=== PATIENT | male | born 1965 | race African-American/Black ===

== ENCOUNTER 2018-10-28 20:19 | Emergency (ER) | payer OTHER ==
--- NOTE | 2018-10-28 21:00 | ED ---
Syncope/Near Syncope - HPI Summary HPI Summary: This pt is a 53 y/o male presenting to [facility] via EMS for syncope today at around 20:00. Pt reports he started working at [employer] at 18:00 today and felt fine. 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 He also states he became lightheaded and knew he had to go out and sit. A witness said patient hit the wall but patient does not remembering hitting anything. He currently c/o lower back pain. Denies abd pain, nausea, vomiting. No PMHx. He does not take any medications. Denies hx of DM or cardiac disease. Pt does smoke cigarettes. 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 [employer] Aggravating Factor(s): Nothing Alleviating Factor(s): Nothing Associated Signs And Symptoms: Lightheadedness, Pain - lower back pain, Other - NEGATIVE: abd pain - Allergies/Home Medications Allergies/Adverse Reactions: Allergies Allergy/AdvReac Type Severity Reaction Status Date / Time No Known Allergies Allergy Verified 03/23/15 19:41 PMH/Surg Hx/FS Hx/Imm Hx Endocrine/Hematology History: Denies: Hx Diabetes Cardiovascular History: Denies: Hx Hypertension Infectious Disease History: No Infectious Disease History: Denies: Traveled Outside the [place] in Last 30 Days - Family History Known Family History: Positive: Diabetes - mother - Social History Alcohol Use: Weekly Substance Use Type: Reports: Marijuana Smoking Status (MU): Current Every Day Smoker Review of Systems Constitutional: Other - POSITIVE: feeling hot Negative: Fever Negative: Abdominal Pain, Vomiting, Nausea Musculoskeletal: Other - POSITIVE: lower back pain Neurological: Other - POSITIVE: lightheadedness Positive: Syncope All Other Systems Reviewed And Are Negative: Yes Physical Exam - Summary Physical Exam Summary: Appearance: Well-appearing, Well-nourished, lying in bed comfortably. Noted to be hypotensive. Skin: Warm, dry, no obvious rash Eyes: sclera anicteric, no conjunctival pallor ENT: mucous membranes moist, pharynx appears normal Neck: Supple, nontender Respiratory: Clear to auscultation, no signs of respiratory distress Cardiovascular: Normal S1, S2. No murmurs. Normal distal pulses in tibial and radial bilaterally. Abdomen: Soft, nontender, normal active bowel sounds present Musculoskeletal: Normal, Strength/ROM Intact Neurological: A&Ox3, awake and alert, mentation is normal, speech is fluent and appropriate Psychiatric: affect is normal, does not appear anxious or depressed Triage Information Reviewed: Yes Vital Signs On Initial Exam: Initial Vitals Temp Pulse Resp BP Pulse Ox 98.0 F 69 16 95/63 98 10/28/18 20:20 10/28/18 20:20 10/28/18 20:20 10/28/18 20:20 10/28/18 20:20 Vital Signs Reviewed: Yes Diagnostics - Vital Signs Vital Signs Temp Pulse Resp BP Pulse Ox 10/28/18 20:20 98.0 F 69 16 95/63 98 - Laboratory Result Diagrams: 10/28/18 21:15 10/28/18 21:15 Lab Statement: Any lab studies that have been ordered have been reviewed, and results considered in the medical decision making process. - Radiology Chest XR Radiology Interpretation Completed By: ED Physician Summary of Radiographic Findings: No acute process - EKG 20:34 Cardiac Rate: Bradycardia EKG Rhythm: Sinus Bradycardia Summary of EKG Findings: Multiple ventricular premature complexes. Abnormal T, consider ischemia, anterior leads. Course/Dx Assessment/Plan: Pt is a 53 y/o male presenting to [facility] via EMS for syncope today at around 20:00. 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 He was witnessed to hit the wall and fall. Pt c/o lower back pain. Blood work was obtained and remarkable for creatinine of 1.58. In the ED course the pt was given IV fluids. Pt was ambulated in the ED with a good steady gait. He will be discharged home with follow up from his PCP. He is advised to be seen by his PCP in 1 week to have his kidney function rechecked. - Diagnoses Provider Diagnoses: Syncope, Dehydration Discharge - Sign-Out/Discharge Documenting (check all that apply): Patient Departure - Discharge home Patient Received Moderate/Deep Sedation with Procedure: No - Discharge Plan Condition: Good Disposition: HOME Patient Education Materials: Dehydration (ED), Syncope (ED) Referrals: Care [facility] [Outside] No Primary Care Phys,NOPCP [Primary Care Provider] - Additional Instructions: I would like you to be seen within a week by a doctor to have your kidney function rechecked. If you start feeling poorly again, just come back here. - Billing Disposition and Condition Condition: GOOD Disposition: Home - Attestation Statements Document Initiated by Lucas: Yes Documenting Scribe: Ana York Provider For Whom Lucas is Documenting (Include Credential): Hussein Haider MD Scribe Attestation: I, Ana York, scribed for Hussein Haider MD on 10/29/18 at 1941. Scribe Documentation Reviewed: Yes Provider Attestation: The documentation as recorded by the Ana mata accurately reflects the service I personally performed and the decisions made by me, Hussein Haider MD Status of Scribe Document: Viewed
[2018-10-28] MEDS ORDERED: NS 0.9% 1000 ML** 3,000 ML IV ONE (21:01)
[2018-10-28 21:21] LABS: ABS Eosinophils 0.3 10^3/ul (0-0.6); ABS Lymphocytes 1.4 10^3/ul (1.0-4.8); ABS Monocytes 0.4 10^3/ul (0-0.8); ABS Neutrophils 2.4 10^3/ul (1.5-7.7); Eosinophil % 7.5 %; Hematocrit 36 % (42-52); Hemoglobin 12.6 g/dL (14.0-18.0); Lymphocyte % 31.4 %; Mean Corpuscular HGB Conc 35 g/dL (31-36); Mean Corpuscular Hemoglobin 34 pg (27-31); Mean Corpuscular Volume 99 fL (80-94); Mean Platelet Volume 6.2 fL (7.4-10.4); Nucleated Red Blood Cells % 0.1; Platelet Count 239 10^3/uL (150-450); Red Cell Distribution Width 14 % (10-15); White Blood Count 4.6 10^3/uL (3.5-10.8)
[2018-10-28 21:40] LABS: Albumin 3.7 g/dL (3.2-5.2); Albumin/Globulin Ratio 1.5 (1-3); BUN/Creatinine Ratio 13.9 (8-20); Calcium 8.4 mg/dL (8.6-10.3); EGFR African American 55.6 (>60); EGFR Non-African American 45.9 (>60); Globulin 2.4 g/dL (2-4); Potassium 3.7 mmol/L (3.5-5.0); Total Bilirubin 0.2 mg/dL (0.2-1.0); Total Protein 6.1 g/dL (6.4-8.9)
[2018-10-28 22:06] LABS: TSH (Thyroid Stimulating Horm) 0.79 mcIU/mL (0.34-5.60)
[2018-10-28 22:37] VITALS: BP 99/56
[2018-10-28 23:22] LABS: Urine Appearance Cloudy; Urine Bilirubin Negative (Negative); Urine Blood Negative (Negative); Urine Color Yellow; Urine Glucose 1+(50 mg/dL) (Negative); Urine Ketones Negative (Negative); Urine Nitrite Negative (Negative); Urine Protein Negative (Negative); Urine Specific Gravity 1.005 (1.010-1.030); Urine Urobilinogen Negative (Negative)
== END 2018-10-28 22:36 | disposition home or self-care (01) ==
LOC: ED 20:19
DX: R55 Syncope and collapse (principal); E86.0 Dehydration; F17.210 Nicotine dependence, cigarettes, uncomplicated
CPT/HCPCS: 36415; 71045; 80053; 81003; 83605; 84443; 84484; 85025; 93005; 96360; 99283

== ENCOUNTER 2019-01-17 10:34 | Emergency (ER) | payer OTHER ==
[2019-01-17] MEDS ORDERED: Fluorescein Sodium TOPICAL* 1 MG TEST STRIP OPHTHALMIC ONE (10:49)
[2019-01-17] MEDS ORDERED: Tetracaine 0.5% OPTH.SOL 4 ML* 1 DROP BTL LEFT EYE ONE (10:57)
[2019-01-17] MEDS ORDERED: Tetracaine 0.5% OPTH.SOL 4 ML* 1 DROP BTL LEFT EYE SCH (11:00)
--- NOTE | 2019-01-17 11:24 | ED ---
Throat Pain/Nasal Congestion - HPI Summary HPI Summary: Pt presents to the ED with L traumatic eye injury which occurred 2 days ago. States a large tennis sized ball from a wood block from chopping flew up and hit his open eye and orbit. States he felt immediate pain to the area, no bleeding or hemorrhage. He has been c/o decreased vision to the L side and is endorsing pain around the eye and behind the eye - sxs are worse with ocular movements. Denies wearing contacts, but has glasses. Currently not wearing glasses. Endorses tearing and green "purulent" drainage from the eye. Denies any other pain or symptoms. - History of Current Complaint Chief Complaint: EDEyeProblem Time Seen by Provider: 01/17/19 10:47 Hx Obtained From: Patient Onset/Duration: Sudden Onset Severity: Severe Associated Signs And Symptoms: Positive: FB Sensation - Epiglottits Risk Factors Epiglottis Risk Factors: Negative - Allergies/Home Medications Allergies/Adverse Reactions: Allergies Allergy/AdvReac Type Severity Reaction Status Date / Time No Known Allergies Allergy Verified 01/17/19 10:41 Home Medications: Home Medications NK [No Home Medications Reported] 01/17/19 [History Confirmed 01/17/19] PMH/Surg Hx/FS Hx/Imm Hx Previously Healthy: Yes Endocrine/Hematology History: Denies: Hx Diabetes Cardiovascular History: Denies: Hx Hypertension - Immunization History Hx Pertussis Vaccination: No Immunizations Up to Date: Yes Infectious Disease History: No Infectious Disease History: Denies: Traveled Outside the [place] in Last 30 Days - Family History Known Family History: Positive: Diabetes - mother - Social History Occupation: Employed Full-time Lives: With Family Alcohol Use: Weekly Hx Substance Use: Yes Substance Use Type: Reports: Marijuana Hx Tobacco Use: Yes Smoking Status (MU): Current Every Day Smoker Review of Systems Negative: Fever, Chills, Skin Diaphoresis Positive: Photophobia - is, Blurred Vision, Drainage, Erythema. Negative: Diplopia Negative: Palpitations, Chest Pain Negative: Shortness Of Breath, Cough Genitourinary: Negative Positive: no symptoms reported, see HPI Negative: Arthralgia, Myalgia Skin: Negative Neurological: Negative All Other Systems Reviewed And Are Negative: Yes Physical Exam Triage Information Reviewed: Yes Vital Signs On Initial Exam: Initial Vitals Temp Pulse Resp BP Pulse Ox 99.3 F 102 16 106/75 98 01/17/19 10:36 01/17/19 10:36 01/17/19 10:36 01/17/19 10:36 01/17/19 10:36 Vital Signs Reviewed: Yes Appearance: Positive: Ill-Appearing, Pain Distress Skin: Positive: Warm, Skin Color Reflects Adequate Perfusion Head/Face: Positive: Normal Head/Face Inspection Eyes: Positive: EOMI, ERYN, Conjunctiva Inflammed, Discharge - watery Neck: Positive: Supple, No Lymphadenopathy Respiratory/Lung Sounds: Positive: Clear to Auscultation, Breath Sounds Present Cardiovascular: Positive: RRR, Pulses are Symmetrical in both Upper and Lower Extremities Musculoskeletal: Positive: Normal, Strength/ROM Intact Neurological: Positive: Speech Normal Psychiatric: Positive: Normal, Affect/Mood Appropriate AVPU Assessment: Alert Procedures - Sedation Patient Received Moderate/Deep Sedation with Procedure: No Diagnostics - Vital Signs Vital Signs Temp Pulse Resp BP Pulse Ox 01/17/19 10:36 99.3 F 102 16 106/75 98 - Laboratory Lab Statement: Any lab studies that have been ordered have been reviewed, and results considered in the medical decision making process. EENT Course/Dx - Course Course Of Treatment: During his course of treatment, the patient's evaluated for pain behind the eye as well as periocular. Sxs have been present since Thursday after hit in the orbit and open eye with a tennis sized ball of wood. He is endorsing tearing from the eye, purulent drainage, severe pain and redness , unable to open the eye. Blepharospasms make ocular visualization difficult and boucher lamp examination limited as pt is unable to keep the eye open for exam. Ful -david to the eye and no uptake visualized. Tearing from the eye with no green/yellow drainage. As pt is having pain behind the eye, CT orbit obtained. Called Dr. Hoang office who is able to see the patient today at 2: 30pm. Given polymyxin drops - 1st dose given in ED. - Differential Diagnoses Differential Diagnoses: Other - Anterior segment injury, conjunctival foreign body, corneal abrasion, entrapment - Diagnoses Provider Diagnoses: Pain, eye, left, Blunt trauma eye - Provider Notifications Discussed Care Of Patient With: milton Ordonez ED - Sign-Out/Discharge Documenting (check all that apply): Patient Departure - Discharge Plan Condition: Fair Disposition: HOME Patient Education Materials: Corneal Abrasion (ED) Referrals: No Primary Care Phys,NOPCP [Primary Care Provider] - Nico Hoang MD [Medical Doctor] - Additional Instructions: You may have a corneal abrasion You will need to have this further evaluated by ophthalmology You have been given ophthalmology drops - every 3 hours while awake 2:30pm appt with Dr. Hoang - Billing Disposition and Condition Condition: FAIR Disposition: Home
[2019-01-17] MEDS ORDERED: Polymyx/Trimethoprim OPTH* 10 ML BTL LEFT EYE SCH (12:00)
[2019-01-17 12:09] VITALS: BP 123/70
== END 2019-01-17 12:00 | disposition home or self-care (01) ==
LOC: ED 10:34
DX: S05.92XA Unspecified injury of left eye and orbit, initial encounter (principal); W20.8XXA Other cause of strike by thrown, projected or falling object, initial encounter; Y92.9 Unspecified place or not applicable; F17.200 Nicotine dependence, unspecified, uncomplicated
CPT/HCPCS: 70480; 99282; A9270-GY